=== PATIENT | male | born 1980 | race Two or more races ===

== ENCOUNTER 2020-07-15 08:53 | Emergency (ER) | payer OTHER ==
[2020-07-15 09:08] VITALS: BMI 35.3
[2020-07-15] MEDS ORDERED: SODIUM CHLORIDE 1,000 ML IV STA (09:32)
[2020-07-15 09:59] LABS: BASO % 0.5 % (0-2.0); EOS % 0.5 % (0-4.5); HEMATOCRIT 46.7 % (35.4-49); HEMOGLOBIN 15.8 GM/dL (11.7-16.9); LYMPH % 18.3 % (8-40); MCH 32.7 pg (25.7-33.7); MCHC 33.8 g/dl (32.0-35.9); MEAN CELL VOLUME 96.7 fl (80-96); MEAN PLT VOLUME 9.5 fl (7.5-11.1); MONO % 6.1 % (3.8-10.2); NEUT % 74.6 % (42.8-82.8); PLATELET COUNT 197 K/MM3 (134-434); RBC 4.83 M/mm3 (4.00-5.60); RDW 12.8 % (11.9-15.9); WHITE BLOOD COUNT 4.6 K/mm3 (4.0-10.0)
[2020-07-15 10:11] LABS: CHLORIDE 103 mmol/L (98-107); SODIUM 137 mmol/L (136-145)
[2020-07-15 10:14] LABS: ALBUMIN 4.2 g/dl (3.4-5.0); ANION GAP 6 MMOL/L (8-16); BLOOD UREA NITROGEN 13.2 mg/dL (7-18); CALCIUM 9.5 mg/dL (8.5-10.1); CO2 28 mmol/L (21-32); GLUCOSE,RANDOM 128 mg/dL (74-106); LIPASE 117 U/L (73-393)
[2020-07-15 10:18] LABS: CREATININE 1.2 mg/dL (0.55-1.3); SGOT/AST 28 U/L (15-37); SGPT/ALT 49 U/L (13-61)
[2020-07-15 10:19] LABS: BILIRUBIN,TOTAL 0.4 mg/dL (0.2-1); TOT PROT 8.4 g/dl (6.4-8.2)
[2020-07-15 10:20] LABS: ALK PHOS 72 U/L (45-117)
[2020-07-15 11:03] VITALS: BP 135/81; PULSE 84; TEMP 98.1
== END 2020-07-15 11:30 | disposition home or self-care (01) ==
LOC: JER 08:53
PROC: 3E0337Z Introduction of Electrolytic and Water Balance Substance into Peripheral Vein, Percutaneous Approach (ICD-10-PCS; principal; 2020-07-15)
DX: R42 Dizziness and giddiness (principal)
CPT/HCPCS: 36415; 71046-TC-FY; 80053; 82550; 82553; 82962; 83690; 84484; 85025; 93005; 93010; 99285-25